=== PATIENT | male | born 1975 | race Caucasian/White ===

== ENCOUNTER 2016-03-25 02:24 | Inpatient (IN) | payer MEDICAID ==
--- NOTE | 2016-03-25 02:53 | EDPRACDOC ---
<Derek Oh - Last Filed: 03/25/16 04:42> - History of Present Illness HPI: Pt with chronic right hip pain c/o taking 60mg of home rx oxycodone and saw him pass out and called 911. was advised to give CPR and did so until EMS arrived. Per EMS pt was breathing 2x/min when they got to him. EMS gave 2mgs Narcan. Pt VS per EMS after Narcan HR 100, BP 160/100. Pt is alert and oriented here in ED, denies suicidal intention or attempt, has no complaints at this time. Med hx = asthma, HTN. Ingestion: Reports: Other (taking home rx oxycodone for pain. States he has taken sme dose before without issue.) Drug Ingested: oxycodone Drug Amount Ingested: 60mg Suicidal Intent: Reports: None Relevant History: Reports: Other (chronic pain) Reason for Seeking Treatment: 911 Call Symptom Severity: None Vomited After Ingestion?: No Associated Signs and Symptoms: Reports: None <Edenilson Harrell - Last Filed: 03/25/16 06:00> - General Information Stated Complaint: OVERDOSE Home Medications: Home Medications Albuterol Sulfate [Proair Hfa] 2 puff INH Q4-6H PRN 02/04/15 Albuterol Sulfate [Proventil, Ventolin] 2.5 mg NEB Q6H 02/04/15 Amlodipine Besylate [Norvasc] 10 mg PO DAILY 02/04/15 Celecoxib (anti-inflammatory) [Celebrex] 200 mg PO DAILY 02/04/15 Hydromorphone HCl [Hydromorphone ER] 12 mg PO BID 02/04/15 Nebulizer [Erapid Nebulizer] 1 each MC DAILY 02/04/15 Oxycodone Immediate Release [Oxycodone Immediate Release (OxyIR)] 5 - 10 mg PO Q4H PRN #7 tab 02/04/15 Pregabalin [Lyrica] 150 mg PO BID 02/04/15 Trazodone HCl 150 mg PO HS 02/04/15 Zolpidem Tartrate [Ambien] 10 mg PO HS PRN 02/04/15 Allergies/Adverse Reactions: Allergies Allergy/AdvReac Type Severity Reaction Status Date / Time No Known Allergies Allergy Verified 02/04/15 15:52 ED Past Medical History - History Reviewed Yes Nurses notes reviewed and agree except as marked - Patient Medical History Respiratory History: Reports: Asthma Musculoskeletal History: Reports: Osteoarthritis (BACK AND KNEES) Additional Past Medical History: CHRONIC LBP - Social Medical History Smoking Status: Never smoker <Edenilson Harrell - Last Filed: 03/25/16 06:00> EDM Review of Systems - Review of Systems ROS Negative Except as Marked: Yes All systems reviewed and were negative except as marked Respiratory: Asthma Musculoskeletal: Hip (chronic right hip pain) <Edenilson Harrell - Last Filed: 03/25/16 06:00> - Physical Exam Last recorded Vital Signs: Last Vital Signs Temp 101.9 F H 03/25/16 02:30 Pulse 77 03/25/16 03:48 Resp 9 L 03/25/16 03:48 BP 121/6 L 03/25/16 03:48 Pulse Ox 94 03/25/16 03:48 Oxygen Pulse Oxygen Saturation 94 O2 Device Nasal Cannula Oxygen Flow Rate 2 Fraction of Inspired Oxygen ( FIO2) <Derek Oh - Last Filed: 03/25/16 04:42> - Physical Exam Constitutional: No apparent distress, Alert Oriented to: Time, Person, Place Last recorded Vital Signs: Oxygen Pulse Oxygen Saturation O2 Device Oxygen Flow Rate Fraction of Inspired Oxygen ( FIO2) - HEENT Head: Normal Eye Exam: negative: Conjunctival Injection, Scleral Icterus Oropharynx: negative: Drooling TMJ: Normal Nose: No Symptoms Reported Neck: Normal - Respiratory/Cardiovascular Respiratory: Normal - CTA Cardiovascular: Tachycardia - GI Tenderness: Non tender - Musculoskeletal Back: Normal Extremities: Normal - Integumentary Skin: Normal - Neurologic Mood Description: Normal Thought: Coherent Perception: Normal <Edenilson Harrell - Last Filed: 03/25/16 06:00> - Results 03/25/16 03:00 03/25/16 03:00 WBC 8.5 xk/uL (3.8-10.8) 03/25/16 03:00 RBC 4.10 xM/uL (4.70-6.10) L 03/25/16 03:00 Hgb 10.4 g/dL (14.0-18.0) L 03/25/16 03:00 Hct 31.1 % (42-52) L 03/25/16 03:00 MCV 76 fL (80-94) L 03/25/16 03:00 MCH 25.5 pg (27-32) L 03/25/16 03:00 MCHC 33.5 g/dl (33-36) 03/25/16 03:00 RDW 15.8 % (11.5-14.5) H 03/25/16 03:00 Plt Count 165 xk/uL (130-400) 03/25/16 03:00 MPV 8.4 fL (7.4-10.4) 03/25/16 03:00 Neut % (Auto) 84.0 % (45-76) H 03/25/16 03:00 Lymph % (Auto) 6.7 % (17-44) L 03/25/16 03:00 [place] % (Auto) 7.5 % (3-10) 03/25/16 03:00 Eos % (Auto) 1.5 % (0-5) 03/25/16 03:00 Baso % (Auto) 0.3 % (0-2) 03/25/16 03:00 Absolute Neuts (auto) 7.14 xk/uL (1.7-8.2) 03/25/16 03:00 Absolute Lymphs (auto) 0.51 xk/uL (0.65-4.75) L 03/25/16 03:00 Puncture Site Right radial 03/25/16 03:30 pH 7.360 pH UNITS (7.35-7.45) 03/25/16 03:30 pCO2 43.0 mmHg (35-45) 03/25/16 03:30 pO2 63.0 mmHg (80-100) L 03/25/16 03:30 HCO3 24.3 MMOL/L (22-26) 03/25/16 03:30 Total CO2 25.6 MMOL/L (23-27) 03/25/16 03:30 Base Excess -1.3 (+/- 2) 03/25/16 03:30 FiO2 % 21% 03/25/16 03:30 Specimen Drawn By Whitr 03/25/16 03:30 Sodium 135 mEq/L (137-146) L 03/25/16 03:00 Potassium 3.7 mEq/L (3.5-5.1) 03/25/16 03:00 Chloride 102 mEq/L (98-107) 03/25/16 03:00 Carbon Dioxide 25 mMOL/L (22-33) 03/25/16 03:00 Anion Gap 12 mEq/L (8-16) 03/25/16 03:00 BUN 22 MG/DL (9-20) H 03/25/16 03:00 Creatinine 1.00 MG/DL (0.66-1.25) 03/25/16 03:00 Estimated GFR (MDRD) > 60 mL/min (>=60) 03/25/16 03:00 Glucose 83 MG/DL (70-99) 03/25/16 03:00 Calculated Osmolality 262 MOs/Kg (270-290) L 03/25/16 03:00 Lactic Acid 0.9 mEq/L (0.7-2.1) 03/25/16 03:40 Calcium 8.4 MG/DL (8.4-10.2) 03/25/16 03:00 Corrected Calcium 9.1 MG/DL (8.4-10.2) 03/25/16 03:00 Total Bilirubin 0.4 MG/DL (0.2-1.3) 03/25/16 03:00 AST 41 IU/L (17-59) 03/25/16 03:00 ALT 40 IU/L (21-72) 03/25/16 03:00 Alkaline Phosphatase 88 IU/L (38-126) 03/25/16 03:00 Total Protein 6.3 G/DL (6.3-8.2) 03/25/16 03:00 Albumin 3.3 G/DL (3.5-5.0) L 03/25/16 03:00 Lab Results 03/25/16 03/25/16 03/25/16 03:40 03:30 03:00 WBC 8.5 RBC 4.10 L Hgb 10.4 L Hct 31.1 L MCV 76 L MCH 25.5 L MCHC 33.5 RDW 15.8 H Plt Count 165 MPV 8.4 Neut % (Auto) 84.0 H Lymph % (Auto) 6.7 L [place] % (Auto) 7.5 Eos % (Auto) 1.5 Baso % (Auto) 0.3 Absolute Neuts (auto) 7.14 Absolute Lymphs (auto) 0.51 L Puncture Site Right radial pH 7.360 pCO2 43.0 pO2 63.0 L HCO3 24.3 Total CO2 25.6 Base Excess -1.3 FiO2 % 21% Specimen Drawn By Whitr Sodium Potassium Chloride Carbon Dioxide Anion Gap BUN Creatinine Estimated GFR (MDRD) Glucose Calculated Osmolality Lactic Acid 0.9 Calcium Corrected Calcium Total Bilirubin AST ALT Alkaline Phosphatase Total Protein Albumin 03/25/16 03:00 WBC RBC Hgb Hct MCV MCH MCHC RDW Plt Count MPV Neut % (Auto) Lymph % (Auto) [place] % (Auto) Eos % (Auto) Baso % (Auto) Absolute Neuts (auto) Absolute Lymphs (auto) Puncture Site pH pCO2 pO2 HCO3 Total CO2 Base Excess FiO2 % Specimen Drawn By Sodium 135 L Potassium 3.7 Chloride 102 Carbon Dioxide 25 Anion Gap 12 BUN 22 H Creatinine 1.00 Estimated GFR (MDRD) > 60 Glucose 83 Calculated Osmolality 262 L Lactic Acid Calcium 8.4 Corrected Calcium 9.1 Total Bilirubin 0.4 AST 41 ALT 40 Alkaline Phosphatase 88 Total Protein 6.3 Albumin 3.3 L <Derek Oh - Last Filed: 03/25/16 04:42> - Re-evaluation Re-evaluation 1 Re-evaluation Time: 04:39 (pt VS stabe;l;) - Results 03/25/16 03:00 03/25/16 03:00 - EKG EKG #1 EKG Time: 02:41 -: Yes EKG interpreted by me Rate: bpm: 107 Rhythm: ST ST: Normal - Diagnostic Imaging Chest Image interpreted by: Radiologist EXAM: CHEST 2 VIEW COMPARISON: Chest radiograph and CTA of the chest performed 08/14/2015 FINDINGS: The lungs are well-aerated. Vascular congestion is noted. Patchy bilateral airspace opacities, worse on the left, may reflect multifocal pneumonia or possibly pulmonary edema. There is no evidence of pleural effusion or pneumothorax. The heart is normal in size; the mediastinal contour is within normal limits. No acute osseous abnormalities are seen. IMPRESSION: Vascular congestion noted. Patchy bilateral airspace opacities, worse on the left, may reflect multifocal pneumonia or possibly pulmonary edema. Electronically Signed By: Ren[place] Nina M.D. On: 03/25/2016 03:38 <Edenilson Harrell - Last Filed: 03/25/16 06:00> - Departure Yes I personally saw and evaluated the patient. Disposition: Admit IP To This Hospital Education/Counseling Given To: Patient, Family Member Education/Counseling Given Regarding: Diagnosis, Treatment, Prognosis Decision to Admit Time: :44 Decision to admit date: 03/25/16 Decision to admit: from ED - Physician Consulted Hospitalist Time Called: :44 Provider Called: Jhony Marrero Time Mother Superior Returned Call: 04:44 <Derek Oh - Last Filed: 03/25/16 04:42> <Edenilson Harrell - Last Filed: 03/25/16 06:00> - Departure Condition: Fair Final Diagnosis: Narcotic overdose Qualifiers: Encounter type: initial encounter Injury intent: accidental or unintentional Qualified Code(s): T40.601A - Poisoning by unspecified narcotics, accidental ( unintentional), initial encounter Bilateral pneumonia Qualifiers: Pneumonia type: due to unspecified organism Lung location: lower lobe of lung Qualified Code(s): J18.9 - Pneumonia, unspecified organism Aspiration into airway Qualifiers: Encounter type: initial encounter Qualified Code(s): T17.908A - Unspecified foreign body in respiratory tract, part unspecified causing other injury, initial encounter Referrals: Victorino Hodges Jr, MD [Primary Care Provider] - One Week
[2016-03-25] MEDS ORDERED: NALOXONE 2 MG/2 ML SYRINGE ONE (02:54)
[2016-03-25 03:11] LABS: AUTOMATED BASOPHIL 0.3 % (0-2); AUTOMATED EOSINOPHIL 1.5 % (0-5); AUTOMATED LYMPH 6.7 % (17-44); AUTOMATED MONOCYTE 7.5 % (3-10); MPV 8.4 fL (7.4-10.4)
[2016-03-25 03:31] LABS: BLOOD UREA NITROGEN 22 MG/DL (9-20); CALC CORRECTED 9.1 MG/DL (8.4-10.2); CALCIUM 8.4 MG/DL (8.4-10.2); CALCULATED OSMOLALITY 262 MOs/Kg (270-290); CHLORIDE 102 mEq/L (98-107); GLUCOSE 83 MG/DL (70-99); SODIUM LEVEL 135 mEq/L (137-146); TOTAL PROTEIN 6.3 G/DL (6.3-8.2)
[2016-03-25 03:36] LABS: ALLEN'S TEST PASS; BEb -1.3 (+/- 2); TCO2 25.6 MMOL/L (23-27)
[2016-03-25 03:38] LABS: ABG Draw Site Right Radial
--- NOTE | 2016-03-25 03:40 | DIRPT ---
CLINICAL DATA: Acute onset of shortness of breath. Overdose. Initial encounter. EXAM: CHEST 2 VIEW COMPARISON: Chest radiograph and CTA of the chest performed 08/14/2015 FINDINGS: The lungs are well-aerated. Vascular congestion is noted. Patchy bilateral airspace opacities, worse on the left, may reflect multifocal pneumonia or possibly pulmonary edema. There is no evidence of pleural effusion or pneumothorax. The heart is normal in size; the mediastinal contour is within normal limits. No acute osseous abnormalities are seen. IMPRESSION: Vascular congestion noted. Patchy bilateral airspace opacities, worse on the left, may reflect multifocal pneumonia or possibly pulmonary edema. Electronically Signed By: Ren[place] Nina M.D. On: 03/25/2016 03:38
[2016-03-25] MEDS ORDERED: NALOXONE 0.4 MG/ML AMPULE IV ONE ×2 (03:45→04:38)
[2016-03-25] MEDS ORDERED: PIPERACILLIN AND TAZOBACTAM 3.375 GM in D5W 100 ML IV ONE (04:40)
[2016-03-25] MEDS ORDERED: NALOXONE IV SCH ×2 (04:41→14:00)
[2016-03-25] MEDS ORDERED: NS IV SCH ×2 (04:41→14:00)
[2016-03-25] MEDS ORDERED: NS 1,000 ML IV ONE (05:16)
--- NOTE | 2016-03-25 05:39 | HISTPHYS ---
- Chief Complaint overdose - History of Present Illness PRIMARY CARE PROVIDER: Alejandro Hodges HPI: The patient is a 40 yo man with chronic back and hip pain who takes narcotic medication and presents after collapsing at home. He is obtunded so his provides the history. He was sitting at the table and slumped over and was turning blue. did 8 compressions. He fell toward his left side. EMS arrived and gave patient kervin BLS. Transported to hospital. Requiring IV Narcan gtt and still not completely awake. states that he has prescriptions for his pain medications but that she thinks he has been taking more than prescribed. Onset: today. Duration: constant. Location: generalized. Character: obtunded, cyanotic. Alleviated by: Nothing. Exacerbated by: Nothing. Associated Symptoms: Decreased respiratory rate. Right leg swollen x 3 days. Ready for hip replacement soon. Infection in right spine and hip - 2 years ago: no antibiotics in a long time. Chronic back pain. Treatments: none at home except usual medications. PMH: Recent MRI of hip. Asthma Chronic spine infection PSH: Shoulders, knees. No back surgery. 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 - Medical History Respiratory History: Reports: Asthma Musculoskeletal History: Reports: Osteoarthritis (BACK AND KNEES) - Surgical History Reports: Other (Shoulders, knees.) - Medictions/Allergies Allergies No Known Allergies Allergy (Verified 02/04/15 15:52) Current Medication List: Reviewed Home Medications Albuterol Sulfate [Proair Hfa] 2 puff INH Q4-6H PRN 02/04/15 Albuterol Sulfate [Proventil, Ventolin] 2.5 mg NEB Q6H 02/04/15 Amlodipine Besylate [Norvasc] 10 mg PO DAILY 02/04/15 Celecoxib (anti-inflammatory) [Celebrex] 200 mg PO DAILY 02/04/15 Hydromorphone HCl [Hydromorphone ER] 12 mg PO BID 02/04/15 Nebulizer [Erapid Nebulizer] 1 each MC DAILY 02/04/15 Oxycodone Immediate Release [Oxycodone Immediate Release (OxyIR)] 5 - 10 mg PO Q4H PRN #7 tab 02/04/15 Pregabalin [Lyrica] 150 mg PO BID 02/04/15 Trazodone HCl 150 mg PO HS 02/04/15 Zolpidem Tartrate [Ambien] 10 mg PO HS PRN 02/04/15 - Family History Reports: Hypertension (Mother), Cancer (MGM: Cancer colon), Cardiac Disorders ( Father) FAM: Mother: HTN. MGM: Cancer colon Father: Heart disease - Social History Smoking Status: Never smoker Social History: Reports: Substance Use Disorder. Denies: Alcohol Use - Review of Systems Yes Review of systems cannot be obtained due to the patient's medical condition - Physical Exam Vital Signs: Initial Vitals Temperature 101.9 F H 03/25/16 02:30 Pulse Rate 116 03/25/16 02:30 Respiratory Rate 11 03/25/16 02:30 Blood Pressure 121/66 03/25/16 02:30 Pulse Oxygen Saturation 91 03/25/16 02:30 - Other Exam Other Exam Findings: GENERAL: Ill-appearing, well nourished, in acute distress. HEENT: Normocephalic, atraumatic; pupils equal and round. Nares patent, without discharge or bleeding. No oropharyngeal lesions or erythema. Mucous membranes are dry. NECK: is supple, no masses, trachea midline. RESPIRATORY: Clear to auscultation bilaterally. Chest wall movements are symmetric. No use of accessory muscles to breathe. Tachypnea. Bilateral rhonchi. CARDIOVASCULAR: Normal S1, S2. No murmurs, rubs, or gallops. PMI non-displaced. Carotids: no carotid bruits. Tachycardia. DP pulses 2+ bilaterally. GI: soft, nontender, non-distended, normal active bowel sounds. No hepatosplenomegaly. INTEGUMENT: Clean, diaphoretic, and intact. No rashes. No lesions. MUSCULOSKELETAL: No cyanosis. No clubbing. Edema: right lower extremity with 1 + pitting edema. None on left. NEUROLOGICAL: Cranial nerves 2-12 grossly intact, as best can be determined. Reflexes: 2+ bilaterally. Babinski: toes downgoing bilaterally. Further neurologic exam could not be performed due to the medical condition of the patient. PSYCHIATRIC: Not oriented. Somnolent. LYMPHATIC: No cervical lymphadenopathy. No supraclavicular lymphadenopathy. - Lab Results Laboratory Results - last 24 hr 03/25/16 03/25/16 03/25/16 03:00 03:00 03:00 WBC 8.5 RBC 4.10 L Hgb 10.4 L Hct 31.1 L MCV 76 L MCH 25.5 L MCHC 33.5 RDW 15.8 H Plt Count 165 MPV 8.4 Neut % (Auto) 84.0 H Lymph % (Auto) 6.7 L [place] % (Auto) 7.5 Eos % (Auto) 1.5 Baso % (Auto) 0.3 Absolute Neuts (auto) 7.14 Absolute Lymphs (auto) 0.51 L Puncture Site pH pCO2 pO2 HCO3 Total CO2 Base Excess FiO2 % Specimen Drawn By Sodium 135 L Potassium 3.7 Chloride 102 Carbon Dioxide 25 Anion Gap 12 BUN 22 H Creatinine 1.00 Estimated GFR (MDRD) > 60 Glucose 83 Calculated Osmolality 262 L Lactic Acid Calcium 8.4 Corrected Calcium 9.1 Total Bilirubin 0.4 AST 41 ALT 40 Alkaline Phosphatase 88 Total Protein 6.3 Albumin 3.3 L Salicylates < 1.0 Acetaminophen < 10.0 03/25/16 03/25/16 03:30 03:40 WBC RBC Hgb Hct MCV MCH MCHC RDW Plt Count MPV Neut % (Auto) Lymph % (Auto) [place] % (Auto) Eos % (Auto) Baso % (Auto) Absolute Neuts (auto) Absolute Lymphs (auto) Puncture Site Right radial pH 7.360 pCO2 43.0 pO2 63.0 L HCO3 24.3 Total CO2 25.6 Base Excess -1.3 FiO2 % 21% Specimen Drawn By Whitr Sodium Potassium Chloride Carbon Dioxide Anion Gap BUN Creatinine Estimated GFR (MDRD) Glucose Calculated Osmolality Lactic Acid 0.9 Calcium Corrected Calcium Total Bilirubin AST ALT Alkaline Phosphatase Total Protein Albumin Salicylates Acetaminophen - Assessment (1) Overdose of opiate or related narcotic T40.601A - POISONING BY UNSP NARCOTICS, ACCIDENTAL, INIT Acute Present on Admission: Yes Qualifiers: Encounter type: initial encounter Injury intent: undetermined intent Qualified Code(s): T40.604A - Poisoning by unspecified narcotics, undetermined, initial encounter (2) Aspiration pneumonia J69.0 - PNEUMONITIS DUE TO INHALATION OF FOOD AND VOMIT Acute Qualifiers: Lung location: unspecified part of lung (3) Hypoxemia R09.02 - HYPOXEMIA Acute (4) Fever R50.9 - FEVER, UNSPECIFIED Acute Qualifiers: Fever type: other Qualified Code(s): R50.81 - Fever presenting with conditions classified elsewhere - Plan PLAN: (1) Overdose of opiate or related narcotic T40.601A - POISONING BY UNSP NARCOTICS, ACCIDENTAL, INIT Acute Present on Admission: Yes Qualifiers: Encounter type: initial encounter Became obtunded, cyanotic. Now intermittently awake. Plan: IV Narcan gtt. Admit to ICU. (2) Aspiration pneumonia J69.0 - PNEUMONITIS DUE TO INHALATION OF FOOD AND VOMIT Acute Plan: Cultures ordered. IV Zosyn. (3) Hypoxemia R09.02 - HYPOXEMIA Acute Oxygen by NC and increase as needed. (4) Fever R50.9 - FEVER, UNSPECIFIED Acute Concern for pneumonia. Plan: Cultures ordered. Empiric IV antibiotic. In summary, this patient is acutely and critically ill. The patient requires treatment of vital organ failure and measures to prevent further life- threatening deterioration of condition. I have spent 60 min in the critical care of this patient. Case Care Discussed with: Patient, Family, Nursing Staff Critical Care: Yes Code: 291
[2016-03-25 07:34] VITALS: BP 125/78; PULSE 82; TEMP 99.3
[2016-03-25 07:35] VITALS: BMI 28.0
[2016-03-25] MEDS ORDERED: BISACODYL 5 MG TAB PO PRN (07:52)
[2016-03-25] MEDS ORDERED: Docusate Sodium 100 MG CAP PO PRN (07:52)
[2016-03-25] MEDS ORDERED: BENZONATATE 100 MG PERLES PO PRN (07:52)
[2016-03-25] MEDS ORDERED: SENNA CONCENTRATE TAB PO PRN (07:52)
[2016-03-25] MEDS ORDERED: SIMETHICONE 80 MG TAB PO PRN (07:52)
[2016-03-25] MEDS ORDERED: ACETAMINOPHEN 325 MG/TAB TABLET PO PRN (07:52)
[2016-03-25] MEDS ORDERED: TEMAZEPAM 15 MG CAP PO PRN (07:52)
[2016-03-25] MEDS ORDERED: PROMETHAZINE 25 MG/ML VIAL IV PRN (07:52)
[2016-03-25] MEDS ORDERED: ACETAMINOPHEN 325 MG SUPP PR PRN (07:52)
[2016-03-25] MEDS ORDERED: GUAIFEN 100 MG-DEXTROMETH 10 MG PER 5 ML PO PRN (07:52)
[2016-03-25] MEDS ORDERED: ALBUTEROL 0.083% 3 ML NEB NEB PRN (07:52)
[2016-03-25] MEDS ORDERED: ONDANSETRON HCL 4 MG/2 ML VIAL IV PRN (07:52)
[2016-03-25] MEDS ORDERED: NS 1,000 ML IV SCH (08:00)
--- NOTE | 2016-03-25 08:12 | GENMEDPROG ---
Subjective Note: 40-year-old male presents emergency department with drug overdose unresponsive. He received 2 doses of Narcan is on a Narcan drip. He was found slumped over the table turning blue his white did a compressions. Has a history of oxycodone abuse in the past he did not seek any treatment for it but rather manage sit on his own home. He is currently taking oxycodone for the pain in his hip. Today he awakens to voice. He is awake and alert and cooperative. Notes Reviewed: Yes Events from last night noted and discussed with Clinical Staff Current Medication List: Reviewed Currently: Denies: Wheezing, Sputum, Abdominal Pain, Ambulating DVT Prophylaxis: Yes - Physical Examination Vital Signs and I&O: Last Vital Signs Temp 99.3 F 03/25/16 06:45 Pulse 82 03/25/16 06:45 Resp 18 03/25/16 06:45 BP 125/78 03/25/16 06:45 Pulse Ox 94 03/25/16 06:45 Oxygen Pulse Oxygen Saturation 94 O2 Device Nasal Cannula Oxygen Flow Rate Fraction of Inspired Oxygen ( FIO2) Intake & Output 03/22/16 03/23/16 03/24/16 03/25/16 23:59 23:59 23:59 23:59 Intake Total 1168 Balance 1168 Patient's weight 91.172 kg General: Alert, Oriented x3, No acute distress, Well appearing, Well nourished HEENT: Normal (Normocephalic, atraumatic;EOMI.Sclera white, Nares patent, without discharge or bleeding. No oropharyngeal lesions or erythema. Mucous membranes are dry.) Neck: Non-tender, Full range of motion, Normal Trachea alignment, Normal inspection (No cervical lymphadenopathy. No supraclavicular lymphadenopathy.), No Masses palpable, Supple Lymphatics: Normal (No lymph node swelling or pain.) Respiratory: Normal - CTA Cardiovascular: Regular rate and rhythm (No bradycardia or tachycardia), Normal S1, No Gallops,Rubs/Murmurs, Normal S2, Good Pedal Pulses (DP pulses 2+ bilaterally) GI: Normal bowel sounds (normal active sounds), Soft (non-distended), Non tender , No hepatospenomegaly, No masses Extremities/Musculoskeletal: Normal pulses (DP pulses 2+ bilaterally) Skin: Warm,Dry and Intact, No rashes, No significant lesion Neurological: Strength at 5/5 X4 ext (Motor 5/5 throughout.), Normal tone, Cranial nerves 3-12 NL ( 2-12 grossly intact.) Lab/DI/Studies Reviewed: Laboratory Results - last 24 hr 03/25/16 03/25/16 03/25/16 03:00 03:00 03:00 WBC 8.5 RBC 4.10 L Hgb 10.4 L Hct 31.1 L MCV 76 L MCH 25.5 L MCHC 33.5 RDW 15.8 H Plt Count 165 MPV 8.4 Neut % (Auto) 84.0 H Lymph % (Auto) 6.7 L [place] % (Auto) 7.5 Eos % (Auto) 1.5 Baso % (Auto) 0.3 Absolute Neuts (auto) 7.14 Absolute Lymphs (auto) 0.51 L Puncture Site pH pCO2 pO2 HCO3 Total CO2 Base Excess FiO2 % Specimen Drawn By Sodium 135 L Potassium 3.7 Chloride 102 Carbon Dioxide 25 Anion Gap 12 BUN 22 H Creatinine 1.00 Estimated GFR (MDRD) > 60 Glucose 83 Calculated Osmolality 262 L Lactic Acid Calcium 8.4 Corrected Calcium 9.1 Total Bilirubin 0.4 AST 41 ALT 40 Alkaline Phosphatase 88 Total Protein 6.3 Albumin 3.3 L Salicylates < 1.0 Acetaminophen < 10.0 03/25/16 03/25/16 03:30 03:40 WBC RBC Hgb Hct MCV MCH MCHC RDW Plt Count MPV Neut % (Auto) Lymph % (Auto) [place] % (Auto) Eos % (Auto) Baso % (Auto) Absolute Neuts (auto) Absolute Lymphs (auto) Puncture Site Right radial pH 7.360 pCO2 43.0 pO2 63.0 L HCO3 24.3 Total CO2 25.6 Base Excess -1.3 FiO2 % 21% Specimen Drawn By Whitr Sodium Potassium Chloride Carbon Dioxide Anion Gap BUN Creatinine Estimated GFR (MDRD) Glucose Calculated Osmolality Lactic Acid 0.9 Calcium Corrected Calcium Total Bilirubin AST ALT Alkaline Phosphatase Total Protein Albumin Salicylates Acetaminophen - Assessment (1) Overdose of opiate or related narcotic Acute T40.601A - POISONING BY UNSP NARCOTICS, ACCIDENTAL, INIT Qualifiers: Encounter type: initial encounter Injury intent: undetermined intent Qualified Code(s): T40.604A - Poisoning by unspecified narcotics, undetermined, initial encounter Comment/Plan: Patient will be referred for outpatient counseling for drug abuse management. He clearly needs some pain management as well. Will refer him back to Dr. Hodges who can set up pain management for him will give him information regarding outpatient rehab. (2) Aspiration pneumonia Acute J69.0 - PNEUMONITIS DUE TO INHALATION OF FOOD AND VOMIT Qualifiers: Lung location: unspecified part of lung Comment/Plan: Continue IV antibiotics. Wean O2 as able. (3) Fever Acute R50.9 - FEVER, UNSPECIFIED Qualifiers: Fever type: other Qualified Code(s): R50.81 - Fever presenting with conditions classified elsewhere Comment/Plan: Fever likely due to aspiration pneumonia. Continue current treatment (4) Hypoxemia Acute R09.02 - HYPOXEMIA Comment/Plan: Wean Narcan drip as able to keep oxygenation stable. - Plan Patient will choir referral to outpatient pain management as well as a drug rehab. Clearly his issues of his hip are causing all of the problem and certainly repair of his hip should help with pain and therefore help him to decrease the amount of narcotics he is using. Disposition Plan: Home once no longer requiring Narcan drip Case Care Discussed with: Patient, Family, Nursing Staff Education/Counseling Given To: Patient, Family Member Education/Counseling Given Regarding: Diagnosis, Treatment, Prognosis, Follow Up , Disposition Plan Total Time: 45 minutes Critical Care: Yes Couseling Time (>50% in counseling/coordination): No
[2016-03-25] MEDS ORDERED: PREGABALIN 50 MG CAP PO SCH (09:00)
[2016-03-25] MEDS ORDERED: AMLODIPINE 10 MG TAB PO SCH (09:00)
[2016-03-25] MEDS ORDERED: PIPERACILLIN AND TAZOBACTAM 3.375 GM in D5W 100 ML IV SCH (11:00)
--- NOTE | 2016-03-25 15:31 | PCM.DCS92 ---
- Final/Secondary Discharge Diagnosis (1) Overdose of opiate or related narcotic Acute T40.601A - POISONING BY UNSP NARCOTICS, ACCIDENTAL, INIT Present on Admission: Yes initial encounter undetermined intent T40.604A - Poisoning by unspecified narcotics, undetermined, initial encounter Comment: Patient will be referred for outpatient counseling for drug abuse management. He clearly needs some pain management as well. Will refer him back to Dr. Hodges who can set up pain management for him will give him information regarding outpatient rehab. (2) Aspiration pneumonia Acute J69.0 - PNEUMONITIS DUE TO INHALATION OF FOOD AND VOMIT unspecified part of lung Comment: Continue IV antibiotics. Wean O2 as able. (3) Fever Acute R50.9 - FEVER, UNSPECIFIED other R50.81 - Fever presenting with conditions classified elsewhere Comment: Fever likely due to aspiration pneumonia. Continue current treatment (4) Hypoxemia Acute R09.02 - HYPOXEMIA Comment: Wean Narcan drip as able to keep oxygenation stable. Discharge Disposition: AMA Discharge Condition: Fair Cognitive Discharge Status: Unimpaired Fuctional Discharge Status: Independent Physician Follow up/Referrals: Victorino Hodges Jr, MD [Primary Care Provider] - One Week O2 Device: Nasal Cannula - DC Summary Notes Hospital Course Note:: Discharge summary on patient named JANICE BOLDEN admitted to [facility] on 03/25/16 by Jhony Marrero MD. Date of discharge is []. Patient admitted to the hospital with then oxycodone overdose. He has multiple problems with hip and his back and is in the process of evaluation for a hip surgery. Patient was interested in having pain medications and treatment for his pain. I explained to him that he had overdosed. Patient left AMA. - Physical Exam Vital Signs: Last Vital Signs Temp 99.3 F 03/25/16 06:45 Pulse 82 03/25/16 06:45 Resp 18 03/25/16 06:45 BP 125/78 03/25/16 06:45 Pulse Ox 94 03/25/16 06:45 Oxygen Pulse Oxygen Saturation 94 O2 Device Nasal Cannula Oxygen Flow Rate Fraction of Inspired Oxygen ( FIO2) Constitutional: No apparent distress, Alert Oriented to: Time, Person, Place - HEENT Head: Normal Eye: negative: Conjunctival Injection, Scleral Icterus Oropharynx: negative: Drooling TMJ: Normal Nose: No Symptoms Reported - Respiratory/Cardiovascular Respiratory: Normal - CTA - GI Tenderness: Non tender - Musculoskeletal Back: Normal Extremities: Normal - Integumentary Lymphatics: Normal (No lymph node swelling or pain.) - Neurologic Mood Description: Normal Thought: Coherent Perception: Normal
[2016-03-25] MEDS ORDERED: ENOXAPARIN 40 MG/0.4 ML PFS SQ SCH (18:00)
[2016-03-25] MEDS ORDERED: CHLORHEXIDINE (HIBICLENS) 4 OZ BOTTLE TOP SCH (21:00)
== END 2016-03-25 08:28 | disposition left against medical advice (07) | DRG 917 ==
LOC: ED 02:24 → ICU 05:35
PROVIDERS: ADMIT Internal Medicine; ATTEND Hospitalist
PROC: 039B3ZZ Drainage of Right Radial Artery, Percutaneous Approach (ICD-10-PCS; principal; 2016-03-25)
DX: T40.2X1A Poisoning by other opioids, accidental (unintentional), initial encounter (principal); J69.0 Pneumonitis due to inhalation of food and vomit; R09.02 Hypoxemia; J45.909 Unspecified asthma, uncomplicated; Z79.899 Other long term (current) drug therapy
CPT/HCPCS: 36415; 36600; 71020; 80053; 80307; 80329; 82803; 83605; 85025; 87040; 93005; 96361; 96365; 96366; 96375; 99284; J1650; J2310; J2543; J3490; J7060

== ENCOUNTER → 2016-04-17 20:16 | Emergency (ER) | payer MEDICAID, OTHER ==
[2016-04-17 20:16] VITALS: BMI 28.0
== END | disposition expired ==
LOC: ED 20:16